=== PATIENT | female | born 1950 | race Caucasian/White ===

== ENCOUNTER 2016-06-10 13:49 | Outpatient (CLI) ==
[2015-12-29 22:04] VITALS: BMI 40.4
== END 2016-06-10 13:50 | disposition home or self-care (01) ==
LOC: AMBL 13:49
PROVIDERS: ATTEND Internal Medicine
DX: R07.9 Chest pain, unspecified (principal); R68.84 Jaw pain; M54.9 Dorsalgia, unspecified; I48.91 Unspecified atrial fibrillation; I45.10 Unspecified right bundle-branch block

== ENCOUNTER 2016-07-05 00:43 | Outpatient (CLI) ==
[2015-12-29 22:04] VITALS: BMI 40.4
== END 2016-07-05 00:44 ==
LOC: AMBL 00:43
PROVIDERS: ATTEND Internal Medicine Geriatric Medicine
DX: R06.02 Shortness of breath (principal); R53.1 Weakness; E11.9 Type 2 diabetes mellitus without complications; I48.91 Unspecified atrial fibrillation; J44.9 Chronic obstructive pulmonary disease, unspecified; I50.9 Heart failure, unspecified; Z99.81 Dependence on supplemental oxygen; W06.XXXA Fall from bed, initial encounter

== ENCOUNTER 2016-07-12 16:27 | Outpatient (CLI) ==
[2015-12-29 22:04] VITALS: BMI 40.4
[2016-07-12 16:37] LABS: BASOPHILS # (AUTO) 0.1 K/uL (0-0.2); BASOPHILS % (AUTO) 0.9 % (0.0-3.0); EOSINOPHILS # (AUTO) 0.2 K/ul (0.0-0.7); EOSINOPHILS % (AUTO) 2.3 % (0.0-7.0); HEMATOCRIT 36.4 % (37.0-47.0); HEMOGLOBIN 12.4 g/dl (12.0-16.0); IMMATURE GRANULOCYTE % (AUTO) 0.7 % (0.0-5.0); LYMPHOCYTES # (AUTO) 1.6 K/uL (0.60-3.4); LYMPHOCYTES % (AUTO) 23.3 (10.0-50.0); MEAN CORPUSCULAR HEMOGLOBIN 32.8 pg (27.0-31.0); MEAN CORPUSCULAR HGB CONC 34.1 (31.8-35.4); MEAN CORPUSCULAR VOLUME 96.3 fl (81.0-99.0); MONOCYTES # (AUTO) 0.5 K/uL (0.4-2.0); MONOCYTES % (AUTO) 6.5 (0-10); NEUTROPHILS # (AUTO) 4.6 K/ul (2.0-6.9); NEUTROPHILS % (AUTO) 66.3; PLATELET COUNT 142 10^3/uL (140-440); RED BLOOD COUNT 3.78 10^6/ul (4.20-5.40); WHITE BLOOD COUNT 6.91 K/ul (4.6-10.2)
[2016-07-12 16:42] LABS: BILIRUBIN,URINE Negative (NEGATIVE); KETONES,URINE Negative (NEGATIVE); LEUKOCYTE ESTERASE ,URINE Negative (NEGATIVE); NITRITE,URINE Negative (NEGATIVE); PH,URINE 5.5 (5-9); PROTEIN,URINE Negative (NEGATIVE); URINE, BLOOD Trace-lysed (NEGATIVE)
[2016-07-12 16:51] LABS: ADD URINE MICROSCOPIC YES
[2016-07-12 16:52] LABS: BACTERIA,URINE TRACE (NOT PRESENT)
[2016-07-12 16:54] LABS: ANION GAP 17.4; CALCIUM 8.5 mg/dL (8.2-10.2); POTASSIUM 4.4 mmol/L (3.5-5.10)
== END 2016-07-12 16:28 | disposition home or self-care (01) ==
LOC: NONPT 16:27
PROVIDERS: ATTEND Family Medicine
DX: I13.0 Hypertensive heart and chronic kidney disease with heart failure and stage 1 through stage 4 chronic kidney disease, or unspecified chronic kidney disease (principal); N18.9 Chronic kidney disease, unspecified; I50.42 Chronic combined systolic (congestive) and diastolic (congestive) heart failure; Z79.899 Other long term (current) drug therapy
CPT/HCPCS: 80048; 81001; 85025; 87086

== ENCOUNTER 2016-08-02 12:47 | Outpatient (CLI) ==
[2015-12-29 22:04] VITALS: BMI 40.4
== END 2016-08-02 12:48 ==
LOC: AMBL 12:47
PROVIDERS: ATTEND Emergency Medicine
DX: M25.551 Pain in right hip (principal); R06.02 Shortness of breath; I95.89 Other hypotension; I48.91 Unspecified atrial fibrillation; N18.3 Chronic kidney disease, stage 3 (moderate); I50.9 Heart failure, unspecified; J44.9 Chronic obstructive pulmonary disease, unspecified; E11.9 Type 2 diabetes mellitus without complications; Z95.1 Presence of aortocoronary bypass graft

== ENCOUNTER 2016-09-11 10:10 | Outpatient (CLI) ==
[2015-12-29 22:04] VITALS: BMI 40.4
== END 2016-09-11 10:11 ==
LOC: AMBL 10:10
PROVIDERS: ATTEND Emergency Medicine
DX: R06.9 Unspecified abnormalities of breathing (principal); R53.83 Other fatigue; I48.91 Unspecified atrial fibrillation; J44.9 Chronic obstructive pulmonary disease, unspecified; I50.9 Heart failure, unspecified; E11.9 Type 2 diabetes mellitus without complications

== ENCOUNTER 2017-02-04 16:40 | Outpatient (CLI) ==
[2015-12-29 22:04] VITALS: BMI 40.4
[2017-02-04 17:04] LABS: HEMATOCRIT 38.5 % (37.0-47.0); HEMOGLOBIN 13.1 g/dl (12.0-16.0); MEAN CORPUSCULAR HEMOGLOBIN 34.6 pg (27.0-31.0); MEAN CORPUSCULAR VOLUME 101.6 fl (81.0-99.0); RED BLOOD COUNT 3.79 10^6/ul (4.20-5.40); WHITE BLOOD COUNT 5.71 K/ul (4.6-10.2)
[2017-02-04 17:11] LABS: BILIRUBIN,URINE Negative (NEGATIVE); KETONES,URINE Negative (NEGATIVE); LEUKOCYTE ESTERASE ,URINE 2+ (NEGATIVE); NITRITE,URINE Negative (NEGATIVE); PH,URINE 6.5 (5-9); PROTEIN,URINE Negative (NEGATIVE); URINE, BLOOD Trace-lysed (NEGATIVE)
[2017-02-04 17:19] LABS: ADD URINE MICROSCOPIC YES
[2017-02-04 17:21] LABS: BACTERIA,URINE TRACE (NOT PRESENT)
[2017-02-04 17:46] LABS: ALBUMIN 3.4 g/dL (3.4-5.0); ALBUMIN/GLOBULIN RATIO 0.83; ANION GAP 14.6; BILIRUBIN,TOTAL 2.15 mg/dL (0.00-1.20); BUN/CREATININE RATIO 13.96; CALCIUM 9.1 mg/dL (8.2-10.2); CREATININE 1.79 mg/dL (0.60-1.30); POTASSIUM 3.6 mmol/L (3.5-5.10); TOTAL PROTEIN 7.5 g/dL (5.8-8.1); URIC ACID 9.5 mg/dL (2.4-6.0)
== END 2017-02-04 16:41 | disposition home or self-care (01) ==
LOC: LAB 16:40
PROVIDERS: ATTEND Nurse Practitioner Family
DX: N18.4 Chronic kidney disease, stage 4 (severe) (principal); I10 Essential (primary) hypertension
CPT/HCPCS: 36415; 80053; 81001; 82043; 82306; 83970; 84550; 85027

== ENCOUNTER 2017-05-31 11:23 | Outpatient (CLI) ==
[2015-12-29 22:04] VITALS: BMI 40.4
== END 2017-05-31 11:24 | disposition home or self-care (01) ==
LOC: LAB 11:23
PROVIDERS: ATTEND Nurse Practitioner Family
DX: N18.3 Chronic kidney disease, stage 3 (moderate) (principal); I10 Essential (primary) hypertension
CPT/HCPCS: 36415; 80053; 81001; 82306; 82570; 83970; 84100; 84156; 84550; 85027

== ENCOUNTER 2017-11-26 13:38 | Outpatient (CLI) | payer OTHER ==
[2015-12-29 22:04] VITALS: BMI 40.4
== END 2017-11-26 13:39 | disposition home or self-care (01) ==
LOC: LAB 13:38
PROVIDERS: ATTEND Nurse Practitioner Family
DX: N18.4 Chronic kidney disease, stage 4 (severe) (principal)
CPT/HCPCS: 36415; 80048

== ENCOUNTER 2017-12-04 13:53 | Outpatient (CLI) | payer OTHER ==
[2015-12-29 22:04] VITALS: BMI 40.4
== END 2017-12-04 13:54 | disposition home or self-care (01) ==
LOC: LAB 13:53
PROVIDERS: ATTEND Nurse Practitioner Family
DX: N18.4 Chronic kidney disease, stage 4 (severe) (principal)
CPT/HCPCS: 36415; 80048

== ENCOUNTER 2017-12-04 14:20 | Emergency (ER) | payer OTHER ==
[2017-12-04 14:33] VITALS: BP 80/51; TEMP 98.2; BMI 26.9
--- NOTE | 2017-12-04 15:30 | DI ---
EXAM: LEFT SHOULDER HISTORY: Shoulder pain and FINDINGS: Left shoulder three-view. No fracture or dislocation is identified. Glenohumeral joint is within normal limits. There is mild acromioclavicular joint osteoarthritis. Soft tissues within no rmal limits. IMPRESSION: Early AC joint osteoarthritis.
--- NOTE | 2017-12-04 15:44 | ED.PDOC ---
General ED Provider: Dr. PO NUÑEZ Chief Complaint: Bite Stated Complaint: insect bite Time Seen by Physician: 14:30 Mode of Arrival: Wheelchair Information Source: Patient Exam Limitations: No limitations Primary Care Provider: LISSY TOWNSEND Nursing and Triage Documentation Reviewed and Agree: Yes Does patient meet sepsis criteria?: Yes If yes, has appropriate treatment been initiated?: No System Inflammatory Response Syndrome: Not Applicable (inesect bite 1 month ago see photos) Sepsis Protocol: For patient's 13 years and over: Temp is 96.8 and below OR 101 and greater Pulse >90 BPM Resp >20/minute Acutely Altered Mental Status Are patient's symptoms suggestive of a new infection, such as: -Pneumonia -Skin, Soft Tissue -Endocarditis -UTI -Bone, Joint Infection -Implantable Device -Acute Abdominal Infection -Wound Infection -Meningitis -Blood Stream Catheter Infection -Unknown Musculoskeletal Complaint Exam - Shoulder Pain Complaint/Exam Mechanism of Injury: Reports: Trauma (insect bite 1 month ago) Onset/Duration: 30 days Symptoms Are: Still present Timing: Constant Initial Severity: Mild Current Severity: Mild Location: Reports: Discrete (see photos) Character: Reports: Aching Alleviating: Reports: Rest Aggravating: Reports: Movement, Lifting, Flexion, Extension, Internal rotation, External rotation, Abduction Associated Signs and Symptoms: Reports: Swelling, Redness. Denies: Bruising, Fever, Weakness, Numbness, Tingling Non-Orthopedic Risk Factors: Reports: None Septic Arthritis Risk Factors: Reports: Extremes of age Related Surgical History: Reports: None Shoulder Findings: Present: Swelling Limited Range of Motion: Present: Adduction, Rotator cuff muscles, Rotator cuff insertion Differential Diagnoses: Rotator Cuff Injury, Sprain, Strain Review of Systems - Review Of Systems Constitutional: Reports: No symptoms Eyes: Reports: No symptoms Ears, Nose, Mouth, Throat: Reports: No symptoms Respiratory: Reports: No symptoms Cardiac: Reports: No symptoms GI: Reports: No symptoms : Reports: No symptoms Musculoskeletal: Reports: Joint pain (left shoulder ) Skin: Reports: No symptoms Neurological: Reports: No symptoms Endocrine: Reports: No symptoms Hematologic/Lymphatic: Reports: No symptoms All Other Systems: Reviewed and Negative Past Medical History - Past Medical History Previously Healthy: No Endocrine: Reports: DM 2, Hypothyroid Cardiovascular: Reports: Hypertension, A-Fib Respiratory: Reports: None Hematological: Reports: None Gastrointestinal: Reports: None Genitourinary: Reports: None Neuro/Psych: Reports: None Musculoskeletal: Reports: None Cancer: Reports: None Last Menstrual Period: menopause - Surgical History General Surgical History: Reports: None - Family History Family History: Reports: None - Social History Smoking Status: Former smoker Hx Substance Use: No Alcohol Screening: None - Immunizations Tetanus Shot up to Date: No Physical Exam - Physical Exam Appearance: Well-appearing, No pain distress, Well-nourished Eyes: ONOFRE, EOMI, Conjunctiva clear ENT: Ears normal, Nose normal, Oropharynx normal Respiratory: Airway patent, Breath sounds clear, Breath sounds equal, Respirations nonlabored Cardiovascular: RRR, Pulses normal, No rub, No murmur GI/: Soft, Nontender, No masses, Bowel sounds normal, No Organomegaly Musculoskeletal: Normal strength, ROM intact, No edema, No calf tenderness Skin: Warm, Dry (rash left shoulder see photos) Neurological: Sensation intact, Motor intact, Reflexes intact, Cranial nerves intact, Alert, Oriented Psychiatric: Affect appropriate, Mood appropriate Interpretation - Radiology Interpretation Radiology Interpretation By: Radiologist Radiology Results: No acute changes Critical Care Note - Critical Care Note Total Time (mins): 0 Course - Course Orders, Labs, Meds: Orders Category Date Time Status EHRLICHIA DNA, PCR Stat LAB 12/04/17 15:05 Received LYME, WESTERN BLOT, SERUM Stat LAB 12/04/17 15:05 Received SHELBY MTN SPOTTED FEVER,IgG Routine LAB 12/04/17 15:05 Received SHELBY MTN SPOTTED FEVER,IgM Routine LAB 12/04/17 15:05 Received SHOULDER, LEFT MIN 2V Stat RADS 12/04/17 14:38 Completed Vital Signs: Temp Pulse Resp BP Pulse Ox 12/04/17 14:20 98.2 F 92 H 20 80/51 L 93 L Departure - Departure Time of Disposition: 15:45 (refused admission, renal failure discussed ) Disposition: HOME SELF-CARE Discharge Problem: Renal failure Qualifiers: Renal failure chronicity: unspecified chronicity Qualified Code(s): N19 - Unspecified kidney failure Instructions: Insect Bite or Sting (ED), Chronic Kidney Disease (ED) Condition: Good Pt referred to PMD for follow-up: Yes IPMP verified?: No Additional Instructions: Please call your Family Physician as soon as possible to schedule a follow-up appointment.since you refused to be admitted and we discussed kiney failure and insect bite please see your doctor as soon as you can. your kidneys are failing and this is a serious matter if you ignore this you can or wind up on dialysis. i have ordered a lyme test and more insect bite tests these test will be avilable in 1 weeks time please have your doctor obtain results Allergies/Adverse Reactions: Allergies exenatide [From Byetta] Adverse Reaction (Verified 12/04/17 14:30) gatifloxacin [From Tequin] Adverse Reaction (Verified 12/04/17 14:30) levofloxacin [From Levaquin] Adverse Reaction (Verified 12/04/17 14:30) niacin [From Niaspan Extended-Release] Adverse Reaction (Verified 12/04/17 14:30 ) Penicillins Adverse Reaction (Verified 12/04/17 14:30) rosuvastatin [From Crestor] Adverse Reaction (Verified 12/04/17 14:30) Uszwbep-[id number]-Gno Reductase Inhibitor Adverse Reaction (Verified 12/04/17 14:30) sulfamethoxazole [From Bactrim] Adverse Reaction (Verified 12/04/17 14:30) trimethoprim [From Bactrim] Adverse Reaction (Verified 12/04/17 14:30) red yeast Allergy (Uncoded 12/04/17 14:31) Home Medications: Ambulatory Orders Ezetimibe [Zetia] 10 mg PO BEDTIME 03/06/13 Aspirin [Aspirin EC] 81 mg PO DAILYWM 09/30/15 Levothyroxine Sodium [Synthroid] 50 mcg PO QDAC 09/30/15 Acetaminophen 650 mg PO Q4HR PRN 12/29/15 Albuterol Sulfate 0.083% Neb [Albuterol 0.083% Neb] 1 vial NEB RTQ6H PRN Alprazolam [Xanax] 0.5 mg PO TID PRN 12/29/15 Insulin Aspart [Novolog Insulin] 5 unit SUBCUT TIDWM 12/29/15 Nitroglycerin [Nitrostat] 1 mg SL DIRECTED PRN 12/29/15 Ondansetron HCl [Zofran] 4 mg PO Q4HR PRN 12/29/15 Bumetanide 1 tab PO DAILY 10/03/17 Carvedilol [Coreg] 3.125 mg PO BID 10/03/17 Escitalopram Oxalate [Lexapro] 20 mg PO DAILY 10/03/17 Hydrocodone Bitartrate [Zohydro ER] 1 tab PO Q8HR PRN 10/03/17 Metolazone [Zaroxolyn] 1 tab PO 2 TIMES PER WEEK 10/03/17 Spironolactone [Aldactone] 1 tab PO DAILY 10/03/17 Ipratropium/Albuterol Sulfate [Combivent Respimat Inhal Mobile] 2 spray IH DAILY PRN 12/04/17
== END 2017-12-04 16:05 | disposition home or self-care (01) ==
LOC: ED 14:20
DX: N18.4 Chronic kidney disease, stage 4 (severe) (principal); R21 Rash and other nonspecific skin eruption; S40.262A Insect bite (nonvenomous) of left shoulder, initial encounter; W57.XXXA Bitten or stung by nonvenomous insect and other nonvenomous arthropods, initial encounter
CPT/HCPCS: 36415; 80048; 86617; 86757; 87798; 99283

== ENCOUNTER 2017-12-07 09:19 | Outpatient (CLI) | END 2017-12-07 09:37 | disposition short-term general hospital (02) | LOC: AMBL 09:19 | PROVIDERS: ATTEND Internal Medicine Geriatric Medicine | DX: M54.5 Low back pain (principal); W19.XXXA Unspecified fall, initial encounter ==

== ENCOUNTER 2017-12-08 07:28 | Outpatient (CLI) | END 2017-12-08 07:42 | disposition short-term general hospital (02) | LOC: AMBL 07:28 | PROVIDERS: ATTEND Emergency Medicine | DX: R10.9 Unspecified abdominal pain (principal); W19.XXXD Unspecified fall, subsequent encounter ==

== ENCOUNTER 2018-03-12 14:07 | Outpatient (CLI) ==
--- NOTE | 2018-03-13 09:00 | DI ---
EXAM: Paranasal sinuses. Three-view HISTORY: Foreign body in nose COMPARISON: CT head 07/16/2011 TECHNIQUE: Three views paranasal sinuses were performed FINDINGS: No radiopaque foreign body identified. Probable osteoma in the left nasal turbinate region , unchanged from CT head 07/16/2011. No fracture identified. IMPRESSION: No radiopaque foreign body identified. Probable osteoma in the left nasal turbinate noemí on, unchanged from 2012
== END 2018-03-12 14:08 | disposition home or self-care (01) ==
LOC: RAD 14:07
PROVIDERS: ATTEND Nurse Practitioner
DX: T17.1XXA Foreign body in nostril, initial encounter (principal)

== ENCOUNTER 2018-04-02 15:10 | Outpatient (CLI) | payer OTHER | END 2018-04-02 15:11 | disposition home or self-care (01) | LOC: LAB 15:10 | PROVIDERS: ATTEND Nurse Practitioner Family | DX: N18.3 Chronic kidney disease, stage 3 (moderate) (principal); I10 Essential (primary) hypertension | CPT/HCPCS: 36415; 80053; 81001; 82306; 82570; 83970; 84156; 84550; 85025; 85027 ==

== ENCOUNTER 2018-04-16 15:10 | Outpatient (CLI) | payer OTHER ==
--- NOTE | 2018-04-16 16:42 | CT ---
EXAM: CT of the sinuses without contrast History: Left nostril irritation Comparison: Sinus radiograph 03/12/2018, head CT 11/14/2011 Technique: Multiplanar CT images through the sinuses were obtained without the administration of IV contrast Findings: Orbits are intact. The visualized intracranial contents demonstrate no acute findings. S urrounding soft tissues demonstrate no acute abnormality. Hypoplastic left mastoid air cells. No de finite fluid is seen within the mastoid air cells. Minimal mucosal thickening of the left maxillary s inus. Paranasal sinuses are otherwise clear. Heavily calcified inferior left nasal turbinate with a ting of calcification of 1.8 cm x 2.6 cm. The hard palate adjacent to the inferior left nasal turbinat e is disrupted with dehiscence. Nasal septum is not significantly bowed. Bilateral ostiomeatal units are not occluded. No acute fracture or dislocation. Impression: 1. Abnormally calcified left inferior nasal turbinate. 2. 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 3. Mild mucosal thickening of the left maxillary sinus. Paranasal sinuses are otherwise clear.
== END 2018-04-16 15:11 | disposition home or self-care (01) ==
LOC: RAD 15:10
PROVIDERS: ATTEND Otolaryngology
DX: R23.4 Changes in skin texture (principal)

== ENCOUNTER 2018-09-30 07:27 | Outpatient (CLI) ==
[2018-05-02 13:52] VITALS: BMI 27.6
== END 2018-09-30 07:41 | disposition short-term general hospital (02) ==
LOC: AMBL 07:27
PROVIDERS: ATTEND Emergency Medicine
DX: R06.02 Shortness of breath (principal); I50.9 Heart failure, unspecified; R60.9 Edema, unspecified; R11.2 Nausea with vomiting, unspecified; I48.91 Unspecified atrial fibrillation; R09.89 Other specified symptoms and signs involving the circulatory and respiratory systems; I49.3 Ventricular premature depolarization; Z99.81 Dependence on supplemental oxygen

== ENCOUNTER 2018-10-09 10:27 | Outpatient (CLI) ==
[2018-05-02 13:52] VITALS: BMI 27.6
== END 2018-10-09 10:46 | disposition short-term general hospital (02) ==
LOC: AMBL 10:27
PROVIDERS: ATTEND Emergency Medicine
DX: R06.9 Unspecified abnormalities of breathing (principal); J34.89 Other specified disorders of nose and nasal sinuses; I48.91 Unspecified atrial fibrillation

== ENCOUNTER 2019-01-01 13:40 | Outpatient (CLI) | payer OTHER ==
[2018-05-02 13:52] VITALS: BMI 27.6
== END 2019-01-01 14:01 | disposition short-term general hospital (02) ==
LOC: AMBL 13:40
PROVIDERS: ATTEND Internal Medicine Geriatric Medicine
DX: M25.551 Pain in right hip (principal); S00.93XA Contusion of unspecified part of head, initial encounter; R23.0 Cyanosis; M54.2 Cervicalgia; S51.011A Laceration without foreign body of right elbow, initial encounter; M25.521 Pain in right elbow; W05.0XXA Fall from non-moving wheelchair, initial encounter; I48.91 Unspecified atrial fibrillation; S72.001D Fracture of unspecified part of neck of right femur, subsequent encounter for closed fracture with routine healing; Z99.81 Dependence on supplemental oxygen

== ENCOUNTER 2019-01-04 19:24 | Outpatient (CLI) | payer OTHER ==
[2018-05-02 13:52] VITALS: BMI 27.6
== END 2019-01-04 19:42 | disposition short-term general hospital (02) ==
LOC: AMBL 19:24
PROVIDERS: ATTEND Internal Medicine Geriatric Medicine
DX: R06.02 Shortness of breath (principal); R23.0 Cyanosis; I48.91 Unspecified atrial fibrillation; R06.2 Wheezing; I10 Essential (primary) hypertension; J44.9 Chronic obstructive pulmonary disease, unspecified; I50.9 Heart failure, unspecified; Z99.81 Dependence on supplemental oxygen

== ENCOUNTER 2019-01-13 16:34 | Outpatient (CLI) ==
[2018-05-02 13:52] VITALS: BMI 27.6
== END 2019-01-13 16:52 | disposition short-term general hospital (02) ==
LOC: AMBL 16:34
PROVIDERS: ATTEND Emergency Medicine
DX: R06.03 Acute respiratory distress (principal); R09.89 Other specified symptoms and signs involving the circulatory and respiratory systems; R60.0 Localized edema; I49.9 Cardiac arrhythmia, unspecified; Z99.81 Dependence on supplemental oxygen; R40.2411 Glasgow coma scale score 13-15, in the field [EMT or ambulance]